=== PATIENT | male | born 1960 | race Caucasian/White ===

== ENCOUNTER → 2019-03-17 08:06 | Outpatient (CLI) | payer OTHER, SELFPAY ==
[2019-03-17 08:43] LABS: Add Manual Diff / Slide Review NO; Basophils Absolute Auto 0 /uL (0-100); Basophils Percent Auto 0.7 % (0-2); Eosinophils Absolute Auto 100 /uL (0-450); Eosinophils Percent Auto 2.5 % (2-4); Hematocrit 41.6 % (41-53); Hemoglobin 14.5 g/dL (13.5-17.5); Lymphocytes Absolute Auto 1300 /uL (1100-4500); Lymphocytes Percent Auto 42.7 % (25-40); Mean Corpuscular HGB Conc 34.7 % (30-36); Mean Corpuscular Hemoglobin 32.9 PG (26-34); Mean Corpuscular Volume 94.7 fL (80-100); Monocytes Absolute Auto 400 /uL (0-900); Monocytes Percent Auto 11.7 % (3-14); Neutrophils Absolute Auto 1300 /uL (1500-7000); Neutrophils Percent Auto 42.4 % (50-75); Platelet Count 134 X10^3/uL (150-400); Red Cell Distribution Width 12.8 % (11.6-14.8); White Blood Cell Count 3.1 X10^3/uL (4.5-11.0)
[2019-03-17 09:13] LABS: Alanine Aminotransferase 23 IU/L (21-72); Albumin 4.2 g/dL (3.5-5.0); Albumin Globulin Ratio 1.4 (1.0-2.8); Alkaline Phosphatase 58 U/L (38-126); Aspartate Aminotransferase 38 IU/L (17-59); BUN Creatinine Ratio 16.7 (6-22); Blood Urea Nitrogen 15 mg/dL (9-20); Calcium 8.9 mg/dL (8.4-10.2); Carbon Dioxide 30 mmol/L (22-32); Chloride 102 mmol/L (98-107); Cholesterol 183 mg/dL (140-199); Estimated Glomerular Filt Rate > 60.0 mL/min (>60); Globulin 2.9 g/dL (1.7-4.1); Glucose 99 mg/dL (70-100); HDL Cholesterol 50 mg/dL (40-60); HEMOLYSIS < 15 (0-50); LDL Cholesterol Calculated 112 mg/dL (<100); Potassium 4.2 mmol/L (3.4-5.1); Sodium 138 mmol/L (137-145); Total Protein 7.1 g/dL (6.3-8.2); Triglycerides 103 mg/dL (35-150)
== END ==
PROVIDERS: PCP Family Medicine; Visit Provider Family Medicine
DX: Z00.00 Encounter for general adult medical examination without abnormal findings (principal); Z13.220 Encounter for screening for lipoid disorders; Z13.6 Encounter for screening for cardiovascular disorders
CPT/HCPCS: 36415; 80053; 80061; 85025

== ENCOUNTER → 2019-06-18 15:40 | Outpatient (CLI) | payer OTHER, SELFPAY ==
[2019-06-21 15:45] LABS: Fecal Immunochemical Test NOT DETECTED (NOT DETECTED)
== END ==
PROVIDERS: PCP Family Medicine; Visit Provider Family Medicine
DX: Z12.11 Encounter for screening for malignant neoplasm of colon (principal)
CPT/HCPCS: 82274

== ENCOUNTER 2019-10-09 09:24 | Inpatient (IN) | payer OTHER, SELFPAY ==
[2019-10-09] VITALS (8 sets, daily range): BP systolic 120–136; BP diastolic 72–84; PULSE 52–67; RESP 12–18; TEMP 36.8–37.1; O2SAT 94–99; BMI 23.1
--- NOTE | 2019-10-09 09:37 | ED_ITS ---
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 this morning. Started with left-sided ?water fall like? hemianopia severe headache behind his right eye tingling into his left hand and along the lateral aspect of the left leg. A sense of feeling slightly orthostatic when he stands up(he notes that this does sometime happen as he has been known to have low blood pressure). A sense that there is more clumsiness in the left hand and perhaps a little more weakness/unsteadiness related to the left leg but he describes symptoms as quite mild. No facial complaints or symptoms. He has had an occasional episode of what he assumed was ocular migraine in the past, not associated with significant headache. He does not carry an official diagnosis of migraine and has not been troubled by chronic recurrent headaches over the course of his life. Related Data Home Medications Medication Instructions Recorded Confirmed No Known Home Medications 03/22/19 Allergies Allergy/AdvReac Type Severity Reaction Status Date / Time No Known Drug Allergies Allergy Unverified 03/22/19 14:52 Review of Systems Review of Systems Narrative: Denies ? fever ? cough ? cold ? chills ? chest pain ? dyspnea ? orthopnea ? wheezing ? abdominal pain ? change to bowel or bladder habits ? nausea vomiting ? skin changes ? rashes Patient History Medical History (Updated 10/09/19 @ 13:03 by Tereza Copeland MD) Actinic keratoses (Chronic 1999) Anxiety (Chronic 1998) Chicken pox (Resolved) Fractures (Resolved 2006) Herpes (Chronic) PTSD (post-traumatic stress disorder) (Chronic 2011) Shingles (Resolved ~1973) Tinnitus (Chronic) Surgical History (Updated 05/18/18 @ 08:42 by Bharati Austin) Anesthesia (Resolved) History of amputation of extremity (Resolved 11/29/85) History of biopsy (Resolved 08/2014) History of open reduction and internal fixation (ORIF) procedure (Resolved 07/14/07) Family History (Updated 03/22/19 @ 15:23 by Teresita Tam DO) Father Heart disease Hypertension High cholesterol Mitral valve disease Aortic valve disease Carotid artery disease Dementia Smoker Mother Age: 82 Hypertension High cholesterol Daily consumption of alcohol Adopted Grandfather No problems noted. Grandmother No problems noted. Sister No problems noted. Family/Other No problems noted. Social History Smoking Status: Never smoker Exam Narrative Exam Narrative: General: Healthy appearing, in no acute distress. Able to give a complete and coherent history. Well-nourished well-developed HEENT: Moist mucous membranes, normal sclera with reactive pupils, Neck: No JVD, supple Respiratory: Lungs are clear to auscultation, no wheezing no rales no rhonchi. Full and symmetrical air movement Cardiac: Regular rate and rhythm no murmurs no bruits Abdomen: Soft nontender good bowel tones, no flank pain Skin: Warm and dry, no rashes Neurologic: Fluent speech, describes a ?water fall flowing effect? in his left visual field (both eyes), no facial asymmetry tongue does not deviate 1 extruded, notes some tingling sensation in his left hand but no obvious deficit similar findings left leg. NIH stroke score of 1 Extremities: No trauma, well perfused Psych: Cooperative, appropriate insight and affect Initial Vital Signs Initial Vital Signs: Vital Signs Temperature 98.3 F 10/09/19 09:24 Pulse Rate 67 10/09/19 09:24 Respiratory Rate 16 10/09/19 09:24 Blood Pressure 129/84 10/09/19 09:24 Pulse Oximetry 99 10/09/19 09:24 Course Orders Ordered: ED Orders 10/09/19 09:[address] angio head and neck Stat EKG-12 Lead Stat 10/09/19 09:45 Basic Metabolic Panel Stat Complete Blood Count AUTO DIFF Stat Partial Thromboplastin Time Stat Prothrombin Time INR Stat 10/09/19 10:33 MR stroke Stat 10/09/19 12:53 EC echo doppler complete Stat Sodium Chloride (Normal Saline 0.9%) 1,000 mls @ 150 mls/hr IV CONT SITA Last Admin: 10/09/19 10:00 Dose: 150 mls/hr Documented by: VEENA Discontinued Medications Ketorolac Tromethamine (Toradol) 15 mg IV NOW ONE Stop: 10/09/19 10:35 Last Admin: 10/09/19 10:53 Dose: 15 mg Documented by: VEENA Vital Signs Vital signs: Vital Signs - 8 hr 10/09/19 09:24 04/11/20 11:45 10/09/19 12:30 Temperature 98.3 F Pulse Rate 67 57 L 55 L Respiratory Rate 16 12 Blood Pressure 129/84 Blood Pressure [Left Arm] 120/73 123/72 Pulse Oximetry 99 98 99 Medical Decision Making Medical Records Medical records reviewed: Yes I reviewed the patient's medical records. Lab Data Lab results reviewed: Yes I reviewed the patient's lab results. Result diagrams: 10/09/19 09:45 10/09/19 09:45 Labs: Lab Results 10/09/19 10/09/19 10/09/19 Range/Units 09:45 09:45 09:45 WBC 4.2 L (4.5-11.0) X10^3/uL RBC 4.48 L (4.5-5.9) X10^6/uL Hgb 14.5 (13.5-17.5) g/dL Hct 42.9 (41-53) % MCV 95.8 (80-100) fL MCH 32.4 (26-34) PG MCHC 33.8 (30-36) % RDW 12.9 (11.6-14.8) % Plt Count 136 L (150-400) X10^3/uL Neut % (Auto) 38.0 L (50-75) % Lymph % (Auto) 49.0 H (25-40) % [place] % (Auto) 11.2 (3-14) % Eos % (Auto) 1.2 L (2-4) % Baso % (Auto) 0.6 (0-2) % Neut # (Auto) 1600 (1644-5987) /uL Lymph # (Auto) 2100 (5213-4156) /uL [place] # (Auto) 500 (0-900) /uL Eos # (Auto) 0 (0-450) /uL Baso # (Auto) 0 (0-100) /uL PT 11.5 (10.1-12.7) SECONDS INR 1.0 (0.9-1.3) APTT 27 (26.4-36.2) SECONDS Sodium 140 (137-145) mmol/L Potassium 4.1 (3.4-5.1) mmol/L Chloride 104 (98-107) mmol/L Carbon Dioxide 28 (22-32) mmol/L BUN 20 (9-20) mg/dL Creatinine 0.86 (0.66-1.25) mg/dL Estimated GFR > 60.0 (>60) mL/min BUN/Creatinine Ratio 23.3 H (6-22) Glucose 95 (70-100) mg/dL Calcium 9.1 (8.4-10.2) mg/dL Urine Dip Bedside Urine Glucose Negative Bedside Urine Bilirubin - Negative Bedside Urine Ketone - Negative Urine Specific [place] 1.010 Bedside Urine Occult Blood - Negative Bedside Urine pH 7.5 Bedside Urine Protein - Negative Bedside Urine Urobilinogen - Negative Bedside Urine Nitrite - Negative Bedside Urine Leukocytes - Negative Esterase Point of care testing: Urine Dip Bedside Urine Glucose Negative Bedside Urine Bilirubin - Negative Bedside Urine Ketone - Negative Urine Specific [place] 1.010 Bedside Urine Occult Blood - Negative Bedside Urine pH 7.5 Bedside Urine Protein - Negative Bedside Urine Urobilinogen - Negative Bedside Urine Nitrite - Negative Bedside Urine Leukocytes - Negative Esterase Imaging Data CTA head/neck: Radiologist's Impression: IMPRESSION: 1. No acute intracranial abnormalities. 2. No high-grade stenosis or occlusion in anterior circulations. 3. No high-grade stenosis or occlusion in posterior circulations. 4. No high-grade stenosis or occlusion in cervical carotid arteries bilaterally. 5. No high-grade stenosis or occlusion in cervical vertebral arteries bilaterally. 6. Bilateral maxillary sinus mucus retention cysts. Any quantitative measurements of stenosis were performed using NASCET criteria. Dictated by: Kristy Robles M.D. on 10/09/2019 at 10:23 CT scan - head: Radiologist's Impression: IMPRESSION: Negative for hemorrhage. Note: Case discussed by telephone with Dr. Tereza Copeland at 9:14 AM [place] time on September. This study fulfills neurological imaging criteria for inclusion or exclusion of acute stroke therapies based on available published neurological imaging guidelines. Dictated by: Ricardo Weber M.D. on 10/09/2019 at 9:12 Brain MRI: Radiologist's Impression: Brain: Abnormal diffusion weighted signal can be seen involving the right occipital lobe, extending down into the medial right temporal lobe and within the right cerebellum, with associated abnormal associated dark signal seen on the ADC maps. No intracranial bleeds or mass effects. Zhang-white matter interface is normal. Brainstem appears normal. Normal intravascular flow voids are present. No abnormal intracranial enhancement. IMPRESSION: BRAIN MRI: Areas of acute infarction can be seen involving the right occipital lobe (extending down into the medial right temporal lobe) and the right cerebellum. BRAIN MR ANGIOGRAM: No significant intracranial arterial abnormality is seen. NECK MR ANGIOGRAM: Within the arteries of the neck, no hemodynamically sign ificant stenosis can be seen. Dictated by: Ricardo Weber M.D. on 10/09/2019 at 10:55 ECG Data Attestation: I personally reviewed and interpreted this ECG as follows: Interpretation: Sinus rhythm at a rate of 61 Normal axis normal intervals No acute ischemic changes MDM Narrative Medical decision making narrative: 59-year-old otherwise exceptionally healthy gentleman presents with acute onset of visual field deficit and headache in the right eye. He is also having sensation abnormalities left upper and lower ex tremities. Code stroke is called and given his excellent health he actually could be having a large vessel occlusion with minimal symptoms. More likely diagnosis is complex migraine however without a prior history of migraines this would be somewhat unusual at the age of 59. Will proceed with brain CT and CTA and re-evaluate symptoms 10:14: radiology call back - no hemorrhage on CT 11:[address] findings. Symptoms on the left side of his body have almost entirely resolved. His headache is down to a 4/10 behind his right eye. The cascade eating water fall pineda anopsia description is down to just a small bit of vision loss in the upper left visual bosch. MRI of the brain is ordered 1229 MR returns and shows an acute area of infarct involving the right occipital lobe and the right cerebellum. With symptoms almost entirely resolved at this point and NIH stroke scale of less than 1, tPA does not seem warranted. Will review care and findings with [facility] and see if they have further recommendations. 1236 Dr Salomon, [facility]. Reviewing case and images. Agrees with conclusion of acute CVA. NO TPA given/recommended due to almost complete resolution of symptoms. No vessel lesions or clots are seen. Recommends full-d ose aspirin, 10 mg of Lipitor, admit for telemetry and echocardiogram looking for structural heart deficits specifically patent foramen ovale. Did offer to follow-up at the [facility] should that be appropriate or required at [phone] patient is informed of findings plan and recommendations. Questions are answered. Care has been reviewed with Dr. Givens, admitting hospitalist. He agrees with admission and we will contact echocardiography to see if we can facilitate an echocardiogram today at some point Discharge Plan Departure Patient Disposition: Admitted As Inpatient Clinical Impression: Stroke Qualifiers: CVA mechanism: other Qualified Code(s): I63.89 - Other cerebral infarction Admit Date/Time: 10/09/19 13:00 Admit Provider: Jace Givens
--- NOTE | 2019-10-09 09:38 | DI.CT.S_ITS ---
PROCEDURE: CT ANGIO HEAD AND NECK INDICATIONS: left side weaknes, tingling, time 8:50 TECHNIQUE: Pre-contrast 4.5 mm thick sections acquired from the foramen magnum to the vertex. After the administration of intravenous contrast, 1 mm thick sections acquired from the aortic arch through the [place] of [place]. Post-contrast 4.5 mm thick sections then re-acquired from the foramen magnum to the vertex. 3-dimensional ohacgpi-flydvatyy-tehkyhbxoi (MIP) and/or volume rendering reformats were acquired of the central intracranial vasculature and neck separately. COMPARISON: [facility], CT, CT STROKE, 10/09/2019, 9:40. FINDINGS: Image quality: Excellent. BRAIN: CSF spaces: Ventricles are normal in size and shape. Basal cisterns are patent. No extra-axial fluid collections. Brain: No midline shift. No intracranial bleeds or masses. Zhang-white matter interface appears intact. Skull and face: Calvarium and facial bones appear intact, without suspicious lesions. Orbits appear normal. Sinuses: Bilateral maxillary sinus mucus retention cyst. The mastoids are clear. HEAD CT ANGIOGRAPHY: Anterior circulation: Intracranial internal carotid arteries are normal in size and flow. The flow within the paired anterior cerebral arteries is normal and symmetric. The flow within the middle cerebral arteries is normal and symmetric. The anterior communicating artery is seen. No aneurysms are seen. Posterior circulation: Visualized portions of the vertebral arteries demonstrate normal caliber, and join to form a normal appearing basilar artery. Flow within the posterior cerebral arteries is normal and symmetric. No aneurysms are seen. NECK CT ANGIOGRAPHY: Carotid system: The great vessels demonstrate a conventional anatomy as they arise from the aortic arch. The origins of the common carotid arteries appear patent. The common carotid arteries demonstrate normal caliber and courses. The bifurcation regions are both widely patent. The internal carotid arteries demonstrate normal calibers and courses. Posterior circulation: The origins of the vertebral arteries both appear widely patent. The more superior extracranial portions of both vertebral arteries also demonstrate normal courses and calibers. They join to form a normal appearing basilar artery. Soft tissues: Visualized neck soft tissues demonstrate no suspicious abnormalities. Bones: No suspicious bony lesions. Visualized cervical spine appears normally aligned. Moderate degenerative disc disease in cervical spine. IMPRESSION: 1. No acute intracranial abnormalities. 2. No high-grade stenosis or occlusion in anterior circulations. 3. No high-grade stenosis or occlusion in posterior circulations. 4. No high-grade stenosis or occlusion in cervical carotid arteries bilaterally. 5. No high-grade stenosis or occlusion in cervical vertebral arteries bilaterally. 6. Bilateral maxillary sinus mucus retention cysts. Any quantitative measurements of stenosis were performed using NASCET criteria. Dictated by: Kristy Robles M.D. on 10/09/2019 at 10:23 Approved by: Kristy Robles M.D. on 10/09/2019 at 10:28
--- NOTE | 2019-10-09 09:38 | DI.CT.S_ITS ---
PROCEDURE: CT STROKE INDICATIONS: left side weaknes, tingling, time 8:50 TECHNIQUE: Noncontrast 4.5 mm thick angled axial sections acquired from the foramen magnum to the vertex, with coronal reformats. For radiation dose reduction, the following was used: automated exposure control, adjustment of mA and/or kV according to patient size. COMPARISON: [facility], CT, CT ANGIO HEAD AND NECK, 10/09/2019, 9:46. FINDINGS: Image quality: Excellent. CSF spaces: Basal cisterns are patent. No extra-axial fluid collections. Ventricles are normal in size and shape. Brain: No midline shift. No intracranial masses or hemorrhage. Zhang-white matter interface is normal. Skull and face: Calvarium and visualized facial bones are intact, without suspicious lesions. Sinuses: Visualized sinuses and mastoids are clear. IMPRESSION: Negative for hemorrhage. Note: Case discussed by telephone with Dr. Tereza Copeland at 9:14 AM [place] time on September. This study fulfills neurological imaging criteria for inclusion or exclusion of acute stroke therapies based on available published neurological imaging guidelines. Dictated by: Ricardo Weber M.D. on 10/09/2019 at 9:12 Approved by: Ricardo Weber M.D. on 10/09/2019 at 9:15
[2019-10-09 09:51] LABS: Add Manual Diff / Slide Review NO; Basophils Absolute Auto 0 /uL (0-100); Basophils Percent Auto 0.6 % (0-2); Eosinophils Absolute Auto 0 /uL (0-450); Eosinophils Percent Auto 1.2 % (2-4); Hematocrit 42.9 % (41-53); Hemoglobin 14.5 g/dL (13.5-17.5); Lymphocytes Absolute Auto 2100 /uL (1100-4500); Mean Corpuscular HGB Conc 33.8 % (30-36); Mean Corpuscular Hemoglobin 32.4 PG (26-34); Mean Corpuscular Volume 95.8 fL (80-100); Monocytes Absolute Auto 500 /uL (0-900); Monocytes Percent Auto 11.2 % (3-14); Neutrophils Absolute Auto 1600 /uL (1500-7000); Platelet Count 136 X10^3/uL (150-400); Red Blood Cell Count 4.48 X10^6/uL (4.5-5.9); Red Cell Distribution Width 12.9 % (11.6-14.8); White Blood Cell Count 4.2 X10^3/uL (4.5-11.0)
[2019-10-09 09:57] LABS: Prothrombin Time 11.5 SECONDS (10.1-12.7)
[2019-10-09 10:00] LABS: PTT Partial Thromboplastin Tim 27 SECONDS (26.4-36.2)
[2019-10-09] MEDS: SODIUM CHLORIDE 0.9% 1,000 ML 150 ML IV (10:00)
[2019-10-09 10:01] LABS: BUN Creatinine Ratio 23.3 (6-22); Blood Urea Nitrogen 20 mg/dL (9-20); Calcium 9.1 mg/dL (8.4-10.2); Carbon Dioxide 28 mmol/L (22-32); Chloride 104 mmol/L (98-107); Estimated Glomerular Filt Rate > 60.0 mL/min (>60); Glucose 95 mg/dL (70-100); HEMOLYSIS 46 (0-50); Potassium 4.1 mmol/L (3.4-5.1); Sodium 140 mmol/L (137-145)
--- NOTE | 2019-10-09 10:33 | DI.MRI.S_ITS ---
PROCEDURE: MR STROKE Pre- and post-contrast brain MRI, non-contrast brain MR angiogram, pre- and postcontrast neck MR angiogram INDICATIONS: Left numbness and hemianopsia TECHNIQUE: Brain: Noncontrast axial T1 spin echo, axial T2 fast spin echo, sagittal and axial FLAIR, coronal T2 fast spin echo, axial gradient echo, axial diffusion and ADC through the brain. After the administration of contrast, axial 3D VIBE of the cranial vasculature and brain. Brain MRA: Non-contrast 3-D time of flight MR angiogram, with multiple blpaeig-chhfqryzy-juzszclrbw (MIP) reformats performed. Neck MRA: Axial and sagittal TruFISP through the neck. Coronal dynamic MR angiogram during administration of contrast in the arterial and venous phases, with 3-dimenstional mfdgarc-ffgosniut-vijngglzhw (MIP) reformats constructed from subtraction images. COMPARISON: [facility], CT, CT STROKE, 10/09/2019, 9:40. [facility], CT, CT ANGIO HEAD AND NECK, 10/09/2019, 9:46. FINDINGS: Image quality: Susceptibility artifact is seen, from dental hardware. BRAIN: CSF spaces: Ventricles are normal in size and shape. Basal cisterns are patent. No extra-axial fluid collections. Brain: Abnormal diffusion weighted signal can be seen involving the right occipital lobe, extending down into the medial right temporal lobe and within the right cerebellum, with associated abnormal associated dark signal seen on the ADC maps. No intracranial bleeds or mass effects. Zhang-white matter interface is normal. Brainstem appears normal. Normal intravascular flow voids are present. No abnormal intracranial enhancement. Skull and face: Calvarial marrow signal is normal. Orbits appear normal. Sinuses: Mucous retention cysts can be seen within the maxillary sinuses, with mild to moderate mucosal thickening within the right maxillary sinus inferiorly. Minimal mucosal thickening is seen elsewhere within the paranasal sinuses. No abnormal fluid is seen within the mastoid air cells. BRAIN MR ANGIOGRAM: Anterior circulation: Intracranial internal carotid arteries are normal in size and enhancement. The flow within the paired anterior cerebral arteries is normal and symmetric. The flow within the middle cerebral arteries is normal and symmetric. The anterior communicating artery is seen. No stenoses, occlusions, or aneurysms. Posterior circulation: The visualized portions of the vertebral arteries demonstrate normal caliber, and join to form a normal appearing basilar artery. The flow within the posterior cerebral arteries is normal and symmetric. No stenoses, occlusions, or aneurysms. NECK MR ANGIOGRAM: Carotids: Great vessels demonstrate a conventional anatomy as they arise from the aortic arch. The origins of the common carotid arteries appear patent. The calibers and courses of both common carotid arteries are normal. The bifurcation regions appear normal bilaterally. The internal carotid arteries demonstrate normal course and caliber. Posterior circulation: The origins of the vertebral arteries appear patent. More superior portions of both vertebral arteries demonstrate normal course and caliber, and join to form a normal appearing basilar artery. Miscellaneous: Subclavian arteries appear patent. Pre-contrast images through the neck show no soft tissue abnormalities. IMPRESSION: BRAIN MRI: Areas of acute infarction can be seen involving the right occipital lobe (extending down into the medial right temporal lobe) and the right cerebellum. BRAIN MR ANGIOGRAM: No significant intracranial arterial abnormality is seen. NECK MR ANGIOGRAM: Within the arteries of the neck, no hemodynamically significant stenosis can be seen. Dictated by: Ricardo Weber M.D. on 10/09/2019 at 10:55 Approved by: Ricardo Weber M.D. on 10/09/2019 at 11:05
[2019-10-09] MEDS: KETOROLAC 60 MG/2 ML VIAL 15 MG IV (10:53)
--- NOTE | 2019-10-09 14:16 | P.HP_ITS ---
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 He also felt some L arm tingling and L leg tingling. He normally runs 5 times per week and has a lot of energy, but th is morning he felt profoundly fatigued. He did not try anything to make a get better and nothing seemed to make it worse. Just prior to the event he denies palpitations but may have felt slightly flushed / hot. Denies any dizziness, chest pain, shortness of breath, recent fever, chills, abdominal pain, nausea, vomiting, diarrhea, constipation, orthopnea, or lower extremity edema. He thought initially that this was a another ocular migraine, but given the other symptoms this morning decided to call the emergency room. In the emergency room, patient had unremarkable vital signs. Laboratory e valuation shows a mild thrombocytopenia, 136, which is stable from his values than outpatient. There are no other remarkable lab findings. He underwent a CT head and CTA head and neck which were both unremarkable. He had an MRI which showed acute areas of infarction involving the right occipital lobe extending down to the medial right temporal lobe, and the right cerebellum. There were no noted significant intracranial atherosclerotic lesions. Case was discussed with [facility] and did not recommend tPA given almost complete resolution of symptoms. He recommended full-dose aspirin, Lipitor and admission for telemetry an echocardiogram to evaluate for any structural heart defects or PFO. Upon arrival to medicine floor, he has improved symptoms and denies any left arm tingling or weakness. He still has a small visual defect in the left upper field of his left eye, but the spot has been shrinking. Patient History Medical History (Updated 10/09/19 @ 13:03 by Tereza Copeland MD) Actinic keratoses (Chronic 1999) Anxiety (Chronic 1998) Chicken pox (Resolved) Fractures (Resolved 2006) Herpes (Chronic) PTSD (post-traumatic stress disorder) (Chronic 2011) Shingles (Resolved ~1973) Tinnitus (Chronic) Surgical History (Updated 05/18/18 @ 08:42 by Bharati Austin) Anesthesia (Resolved) History of amputation of extremity (Resolved 11/29/85) History of biopsy (Resolved 08/2014) History of open reduction and internal fixation (ORIF) procedure (Resolved ) Family & Social History Family History (Updated 03/22/19 @ 15:23 by Teresita Tam DO) Father Heart disease Hypertension High cholesterol Mitral valve disease Aortic valve disease Carotid artery disease Dementia Smoker Mother Age: 82 Hypertension High cholesterol Daily consumption of alcohol Adopted Grandfather No problems noted. Grandmother No problems noted. Sister No problems noted. Family/Other No problems noted. Safety & Behavioral: Feels Safe in Current Yes Environment Been Physically Hurt or No Threatened By a Person Tobacco & Substance use: Smoking Status Never smoker alcohol intake frequency 3 or more drinks per day Substance Use Type does not use Meds Home Medications and Allergies Home Medications Medication Instructions Recorded Confirmed Type No Known Home Medications 03/22/19 10/09/19 History Allergies Allergy/AdvReac Type Severity Reaction Status Date / Time No Known Drug Allergies Allergy Unverified 03/22/19 14:52 Review of Systems Review of Systems Narrative: GENERAL APPEARANCE: Well developed, well nourished, in no acute distress. SKIN: Inspection of the skin reveals no rashes, ulcerations or petechiae. HEENT: Normocephalic atraumatic, extraocular muscles are intact, oropharynx is clear and mucous membranes are moist, neck is supple without adenopathy NECK: Supple and symmetric. There was no thyroid enlargement, and no tenderness, or masses were felt. CHEST: Normal AP diameter and normal contour without any kyphoscoliosis. LUNGS: Auscultation of the lungs revealed no wheezes, rhonchi, or rales. CARDIOVASCULAR: There was a regular rate and rhythm without any murmurs, gallops, rubs. Peripheral pulses were 2+ and symmetric. ABDOMEN: Soft and nontender with normal bowel sounds. No ascites was noted. MUSCULOSKELETAL: There was no tenderness or effusions noted. Muscle strength and tone were normal. EXTREMITIES: No cyanosis, clubbing or edema. NEUROLOGIC: Alert and oriented x 3. Normal affect. Gait was normal. Strength is +5/5 in the Upper Extremities and Lower Extremities Bilaterally. Sensation to touch was normal. Exam Vital Signs (past 8 hours): - 10/09/19 09:24 10/09/19 11:45 10/09/19 12:30 Temperature 98.3 F Pulse Rate 67 57 L 55 L Respiratory Rate 16 12 Blood Pressure 129/84 Blood Pressure [Left Arm] 120/73 123/72 Pulse Oximetry 99 98 99 Oxygen Delivery Method Room Air Narrative Exam Narrative: GENERAL APPEARANCE: Well developed, well nourished, in no acute distress. SKIN: Inspection of the skin reveals no rashes, ulcerations or petechiae. HEENT: Normocephalic atraumatic, extraocular muscles are intact, oropharynx is clear and mucous membranes are moist, neck is supple without adenopathy NECK: Supple and symmetric. There was no thyroid enlargement, and no tenderness, or masses were felt. CHEST: Normal AP diameter and normal contour without any kyphoscoliosis. LUNGS: Auscultation of the lungs revealed no wheezes, rhonchi, or rales. CARDIOVASCULAR: mildly bradycardic with regular rhythm. Peripheral pulses were 2+ and symmetric. ABDOMEN: Soft and nontender with normal bowel sounds. No ascites was noted. MUSCULOSKELETAL: There was no tenderness or effusions noted. Muscle strength and tone were normal. EXTREMITIES: No cyanosis, clubbing or edema. NEUROLOGIC: Alert and oriented x 3. Normal affect. Gait was normal. Strength is +5/5 in the Upper Extremities and Lower Extremities Bilaterally. Sensation to touch was normal. Heel to carroll unremarkable bilaterally. Cranial nerves 2-12 grossly intact bilaterally. No nystagmus. Objective ECG Impression: Normal sinus rhythm with possible left atrial enlargement. No evidence of active ischemia. Imaging CT scan - head: Radiologist's impression: Negative for hemorrhage. Note: Case discussed by telephone with Dr. Tereza Copeland at 9:14 AM [place] time on September. This study fulfills neurological imaging criteria for inclusion or exclusion of acute stroke therapies based on available published neurological imaging guidelines. CTA head and neck: Radiologist's impression: 1. No acute intracranial abnormalities. 2. No high-grade stenosis or occlusion in anterior circulations. 3. No high-grade stenosis or occlusion in posterior circulations. 4. No high-grade stenosis or occlusion in cervical carotid arteries bilaterally. 5. No high-grade stenosis or occlusion in cervical vertebral arteries bilaterally. 6. Bilateral maxillary sinus mucus retention cysts. Any quantitative measurements of stenosis were performed using NASCET criteria. MRI - head: Radiologist's impression: BRAIN MRI: Areas of acute infarction can be seen involving the right occipital lobe (extending down into the medial right temporal lobe) and the right cerebellum. BRAIN MR ANGIOGRAM: No significant intracranial arterial abnormality is seen. NECK MR ANGIOGRAM: Within the arteries of the neck, no hemodynamically significant stenosis can be seen. Labs Result Diagrams: 10/09/19 09:45 10/09/19 09:45 Labs: Laboratory Results - last 24 hr 10/09/19 10/09/19 10/09/19 09:45 09:45 09:45 WBC 4.2 L RBC 4.48 L Hgb 14.5 Hct 42.9 MCV 95.8 MCH 32.4 MCHC 33.8 RDW 12.9 Plt Count 136 L Neut % (Auto) 38.0 L Lymph % (Auto) 49.0 H [place] % (Auto) 11.2 Eos % (Auto) 1.2 L Baso % (Auto) 0.6 Neut # (Auto) 1600 Lymph # (Auto) 2100 [place] # (Auto) 500 Eos # (Auto) 0 Baso # (Auto) 0 PT 11.5 INR 1.0 APTT 27 Sodium 140 Potassium 4.1 Chloride 104 Carbon Dioxide 28 BUN 20 Creatinine 0.86 Estimated GFR > 60.0 BUN/Creatinine Ratio 23.3 H Glucose 95 Calcium 9.1 Assessment & Plan Assessment & Plan narrative: Jared Coates is a 59 year old male, 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 He is admitted for further monitoring and risk stratification. 1. Acute CVA, present on admission, right occipital lobe to R cerebellum. -CT head and CTA head and neck were unremarkable. -MRI stroke showed acute areas of infarction involving the right occipital lobe extending down to the medial right temporal lobe, and the right cerebellum. -have ordered echocardiogram -PT/OT/speech eval -Give full dose ASA -start lipitor 40 mg nightly -continue aspirin 81 mg daily -continue telemetry. -tylenol for pain control -NIH stroke scale q shift, current NIHSS 1 for partial hemianopia. -A1c, TSH, AM lipid panel 2. thrombocytopenia, chronic, stable - continue to follow, consistent with baseline thrombocytopenia noted on outpatient labs, no further inpatient evaluation required. Code: Full, elects as surrogate decision maker and has health care directive at home. DVT: Lovenox daily Dispo: Admitted as inpatient for acute CVA. Scores NIHSS Level of Conciousness: Alert, keenly responsive Ask month/age: Answers both questions correctly. Open/close eyes, close hand: Performs both tasks correctly Best gaze horizontal: Normal Visual bosch: Partial hemianopia Facial palsy: Normal symetrical movement Left arm drift: No drift for full 10 sec Right arm drift: No drift for full 10 sec Left leg drift: No drift for full 5 sec Right leg drift: No drift for full 5 sec Limb ataxia: Absent Sensory on face/arms/legs: Normal, no sensory loss Best language: No aphasia, normal Dysarthria: Normal Extinction or inattention: No abnormality Total NIH Stroke scale score: 1
[2019-10-09] MEDS: ASPIRIN 81 MG CHEW TAB 324 MG PO (15:47)
[2019-10-09] MEDS: ATORVASTATIN 20 MG TABLET 40 MG PO (20:55)
[2019-10-10 01:06] VITALS: O2SAT 99
[2019-10-10 04:45] VITALS: BP 102/68; PULSE 50; RESP 18; TEMP 37.1; O2SAT 100
[2019-10-10 05:01] LABS: Add Manual Diff / Slide Review NO; Basophils Absolute Auto 0 /uL (0-100); Basophils Percent Auto 0.6 % (0-2); Eosinophils Absolute Auto 100 /uL (0-450); Eosinophils Percent Auto 1.8 % (2-4); Hematocrit 42.8 % (41-53); Hemoglobin 14.4 g/dL (13.5-17.5); Lymphocytes Absolute Auto 1700 /uL (1100-4500); Lymphocytes Percent Auto 35.9 % (25-40); Mean Corpuscular HGB Conc 33.6 % (30-36); Mean Corpuscular Hemoglobin 32.3 PG (26-34); Mean Corpuscular Volume 96.2 fL (80-100); Monocytes Absolute Auto 500 /uL (0-900); Monocytes Percent Auto 9.9 % (3-14); Neutrophils Absolute Auto 2500 /uL (1500-7000); Neutrophils Percent Auto 51.8 % (50-75); Platelet Count 126 X10^3/uL (150-400); Red Blood Cell Count 4.45 X10^6/uL (4.5-5.9); Red Cell Distribution Width 12.9 % (11.6-14.8); White Blood Cell Count 4.8 X10^3/uL (4.5-11.0)
[2019-10-10 05:04] LABS: BUN Creatinine Ratio 15.5 (6-22); Blood Urea Nitrogen 13 mg/dL (9-20); Carbon Dioxide 29 mmol/L (22-32); Chloride 106 mmol/L (98-107); Cholesterol 186 mg/dL (140-199); Estimated Glomerular Filt Rate > 60.0 mL/min (>60); Glucose 103 mg/dL (70-100); HDL Cholesterol 43 mg/dL (40-60); HEMOLYSIS < 15 (0-50); LDL Cholesterol Calculated 117 mg/dL (<100); Magnesium 2.2 mg/dL (1.6-2.3); Potassium 4.1 mmol/L (3.4-5.1); Sodium 139 mmol/L (137-145); Triglycerides 131 mg/dL (35-150)
[2019-10-10 05:07] LABS: Hemoglobin A1C% w Est Avg Glu 5.7 % (4.0-6.0)
[2019-10-10 05:41] LABS: TSH w/ Reflex to FT4 2.97 uIU/mL (0.47-4.68)
[2019-10-10 08:00] VITALS: BP 123/81; PULSE 58; RESP 18; TEMP 36.9; O2SAT 100
[2019-10-10] MEDS: ENOXAPARIN 40 MG/0.4 ML SYRINGE SUBCUT (08:45)
[2019-10-10] MEDS: CLOPIDOGREL 75 MG TABLET 300 MG PO (08:46)
--- NOTE | 2019-10-10 08:52 | CM.DANOTE ---
DCP: Case received, EMR reviewed and met with patient. Introduced self and role. Was able to converse with patient and obtain information regarding his baseline activity level at home. DCP assessment completed with information currently available. Patient is a 59 year old male who admitted yesterday afternoon to the care of the hospitalist team. PCP: Dr. Tam. Payer: confirmed: Replaced by [facility]. Patient came to the hospital via family vehicle secondary to him having occular migraines. Patient stated, he has a history of these type of migraines, but this time, the symptoms were different> Patient diagnosed with acute CVA, affecting right occipital lobe and cerebellum. Met with patient in his room. Pleasant, alert and oriented. He mentioned that he has already been up to the bathroom on his own, and is feeling better. 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 He resides in [place] with his , Colette, and his 10 year old daughter. He stated that he is active, and spends time hiking, and runs as well. He also very appreciative of the care that he is getting here. P: DCP to continue to follow. He has not yet worked with P.T. He should be able to go home when he is stable and will look at P.T. notes as well. Vanessa Wright RN/Collar Separator
--- NOTE | 2019-10-10 10:09 | PM.DS.1 ---
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 He also felt some L arm tingling and L leg tingling. He normally runs 5 times per week and has a lot of energy, but this morning he felt profoundly fatigued. He did not try anything to make a get better and nothing seemed to make it worse. Just prior to the event he denies palpitations but may have felt slightly flushed / hot. Denies any dizziness, chest pain, shortness of breath, recent fever, chills, abdominal pain, nausea, vomiting, diarrhea, constipation, orthopnea, or lower extremity edema. He thought initially that this was a another ocular migraine, but given the other symptoms this morning decided to call the emergency room. In the emergency room, patient had unremarkable vital signs. Laboratory evaluation shows a mild thrombocytopenia, 136, which is stable from his values than outpatient. There are no other remarkable lab findings. He underwent a CT head and CTA head and neck which were both unremarkable. He had an MRI which showed acute areas of infarction involving the right occipital lobe extending down to the medial right temporal lobe, and the right cerebellum. There were no noted significant intracranial atherosclerotic lesions. Case was discussed with [facility] and did not recommend tPA given almost complete resolution of symptoms. He recommended full-dose aspirin, Lipitor and admission for telemetry an echocardiogram to evaluate for any structural heart defects or PFO. Upon arrival to medicine floor, he has improved symptoms and denies any left arm tingling or weakness. He still has a small visual defect in the left upper field of his left eye, but the spot has been shrinking. Discharge Providers Provider Date of admission: 10/09/19 13:00 Discharge Date: 10/10/19 Primary care physician: Teresita Tam DO Consults: 10/09/19 14:19 Consult to Occupational Therapy Evaluate & Treat Comment: Physician Instructions: Evaluate and treat Consult to Physical Therapy Evaluate & Treat Comment: Physician Instructions: Evaluate and Treat 10/09/19 14:38 Consult to Speech Therapy Evaluate & Treat Comment: CVA Physician Instructions: Evaluate and treat Discharge provider: Jace Givens DO Summary Hospital Course Discharge Diagnosis: Please see hospital course by problem list noted below. 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 He was admitted for further monitoring and risk stratification. He showed no evidence of atrial fibrillation on telemetry, and his echocardiogram was unremarkable. He was started on antiplatelet therapy as well as statin therapy and will follow-up with his primary care provider. 1. Acute CVA, present on admission, right occipital lobe to R cerebellum. -CT head and CTA head and neck were unremarkable. -MRI stroke showed acute areas of infarction involving the right occipital lobe extending down to the medial right temporal lobe, and the right cerebellum. -echocardiogram did show an intra-atrial shunt with valsalva maneuver consistent with PFO. DVT study was negative for thrombosis. Patient should be referred given his age for evaluation for possible closure for secondary prevention of stroke. -patient tolerated diet, no need for speech eval as no evidence of aspiration during his hospital stay. Patient was seen by physical therapy and did show a mild ataxia, but there was no need for occupational therapy per speech physical therapy evaluation. He was cleared for discharge home. -patient was given loading dose of aspirin and Plavix. He will continue on aspirin 81 mg for life and 75 mg of Plavix daily for 3 weeks. -patient was started on Lipitor 40 mg nightly for high intensity statin. -will likely need outpatient evaluation with holter monitor for evaluation of possible afib given possible PFO closure as noted above. -NIH stroke scale remained 1 throughout his hospital course. His hemianopia began to slowly improve, however there is still a partial deficit. He will likely need to follow-up with an associate professor of forestry or neuro associate professor of forestry if possible as an outpatient. -A1c 5.7%, TSH unremarkable at 2.97, AM lipid panel showing an LDL of 117, total cholesterol 186, and HDL of 43. Triglyceride level unremarkable at 131. 2. thrombocytopenia, chronic, stable - continue to follow, consistent with baseline thrombocytopenia noted on outpatient labs, no further inpatient evaluation required. 3. Prediabetes, new diagnosis a1c minimal elevation at 5.7% - counseled on dietary modifications and patient vigorously exercises. Exam Vital Signs (past 8 hours): - 10/10/19 04:45 10/10/19 08:00 Temperature 98.8 F 98.5 F Pulse Rate 50 L 58 L Respiratory Rate 18 18 Blood Pressure 102/68 123/81 Pulse Oximetry 100 100 Oxygen Delivery Method Room Air Oxygen Flow Rate 0 Narrative Exam Narrative: GENERAL APPEARANCE: Well developed, well nourished, in no acute distress. SKIN: Inspection of the skin reveals no rashes, ulcerations or petechiae. HEENT: Normocephalic atraumatic, extraocular muscles are intact, oropharynx is clear and mucous membranes are moist, neck is supple without adenopathy NECK: Supple and symmetric. There was no thyroid enlargement, and no tenderness, or masses were felt. CHEST: Normal AP diameter and normal contour without any kyphoscoliosis. LUNGS: Auscultation of the lungs revealed no wheezes, rhonchi, or rales. CARDIOVASCULAR: There was a regular rate and rhythm without any murmurs, gallops, rubs. Peripheral pulses were 2+ and symmetric. ABDOMEN: Soft and nontender with normal bowel sounds. No ascites was noted. MUSCULOSKELETAL: There was no tenderness or effusions noted. Muscle strength and tone were normal. EXTREMITIES: No cyanosis, clubbing or edema. NEUROLOGIC: Alert and oriented x 3. Normal affect. Gait was normal. Strength is +5/5 in the Upper Extremities and Lower Extremities Bilaterally. Sensation to touch was normal. Objective Labs Result Diagrams: 10/10/19 04:45 10/10/19 04:45 Labs: Laboratory Results - last 24 hr 10/09/19 10/10/19 10/10/19 09:45 04:45 04:45 WBC 4.8 RBC 4.45 L Hgb 14.4 Hct 42.8 MCV 96.2 MCH 32.3 MCHC 33.6 RDW 12.9 Plt Count 126 L Neut % (Auto) 51.8 Lymph % (Auto) 35.9 [place] % (Auto) 9.9 Eos % (Auto) 1.8 L Baso % (Auto) 0.6 Neut # (Auto) 2500 Lymph # (Auto) 1700 [place] # (Auto) 500 Eos # (Auto) 100 Baso # (Auto) 0 PT 11.5 INR 1.0 APTT 27 Sodium 139 Potassium 4.1 Chloride 106 Carbon Dioxide 29 BUN 13 Creatinine 0.84 Estimated GFR > 60.0 BUN/Creatinine Ratio 15.5 Glucose 103 H Hemoglobin A1c Calcium 9.0 Magnesium 2.2 Triglycerides 131 Cholesterol 186 LDL Cholesterol, Calc 117 H HDL Cholesterol 43 TSH 10/10/19 10/10/19 04:45 04:45 WBC RBC Hgb Hct MCV MCH MCHC RDW Plt Count Neut % (Auto) Lymph % (Auto) [place] % (Auto) Eos % (Auto) Baso % (Auto) Neut # (Auto) Lymph # (Auto) [place] # (Auto) Eos # (Auto) Baso # (Auto) PT INR APTT Sodium Potassium Chloride Carbon Dioxide BUN Creatinine Estimated GFR BUN/Creatinine Ratio Glucose Hemoglobin A1c 5.7 Calcium Magnesium Triglycerides Cholesterol LDL Cholesterol, Calc HDL Cholesterol TSH 2.97 Discharge Plan Discharge Plan Patient Disposition: Home Discharge comment: You were admitted to the hospital with a stroke. You were started on three new medications. Two of them stop platelets from sticking to each other and the other is a cholesterol medication. These medications are designed to reduce your risk of having another stroke. You should take aspirin and lipitor for the rest of your life, however plavix you will only need to take for 3 weeks. Please follow up with your primary care provider in the next 2-4 weeks. You may need to obtain a holter monitor from your PCP to evaluate for possible atrial fibrillation given your stroke as no evidence was found here. Discharge orders & Medications Prescriptions: New clopidogrel 75 mg Tablet 75 mg PO DAILY 21 Days Qty: 21 RF: 0 aspirin 81 mg tablet,delayed release (DR/EC) 81 mg PO DAILY Qty: 30 RF: 0 atorvastatin 40 mg tablet 40 mg PO BEDTIME 30 Days Qty: 30 RF: 0 No Action No Known Home Medications RF: 0 Follow up/Referrals: Teresita Tam DO [Primary Care Provider] - Discharge Health Status Health Concerns: Acute CVA Diet/Activity/Treatments Diet: Diet as Tolerated and Low-sodium Activity: As tolerated Visit Report/Discharge Packet Instructions: DI for Stroke-Ischemic, Atorvastatin, Clopidogrel Visit Report Forms: Patient Portal/API, Stroke Signs & Symptoms Discharge Data Primary Care Provider: Teresita Tam Quality VTE Deep Vein Thrombosis/Pulmonary Embolism Present on Admission: No
[2019-10-10 11:00] VITALS: BP 131/70; PULSE 66; RESP 18; TEMP 37.5; O2SAT 100
--- NOTE | 2019-10-10 11:21 | PT.IIE ---
Surgical History (Last Updated 05/18/18 @ 08:42 by Bharati Austin) Anesthesia (Resolved) History of amputation of extremity (Resolved 11/29/85) History of biopsy (Resolved 08/2014) History of open reduction and internal fixation (ORIF) procedure (Resolved 07/14/07) Medical History (Last Updated 05/18/18 @ 08:42 by hBarati Austin) Actinic keratoses (Chronic 1999) Anxiety (Chronic 1998) Chicken pox (Resolved) Fractures (Resolved 2006) Herpes (Chronic) PTSD (post-traumatic stress disorder) (Chronic 2011) Shingles (Resolved ~1973) Tinnitus (Chronic) Physical Therapy Inpatient Evaluation/Re-Eval M1 PT/OT-IP Prior Functional Status Start: 10/10/19 09:10 Freq: Status: Active Protocol: Document 10/10/19 09:50 MB (Rec: 10/10/19 11:21 MB [id number]) Medical Review Prior Functional Status Medical History Reviewed Yes Diet/Fluid Consistency Regular Communication A&O x4 Mobility and Gait I Activities of Daily Living and IADL's I, worked, very active hiking, running Social History Household Members spouse,children Living Arrangements House Number of Stairs To Enter/Railing? 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 PT-IP Current Condition Start: 10/10/19 09:10 Freq: Status: Active Protocol: Document 10/10/19 09:50 MB (Rec: 10/10/19 11:21 MB [id number]) Physical Therapy Current Condition Current Condition Evaluation Date 10/10/19 Treatment Diagnosis R cerebellar and occipital lobe stroke M3 PT-IP Subjective Start: 10/10/19 09:10 Freq: Status: Active Protocol: Document 10/10/19 09:50 MB (Rec: 10/10/19 11:21 MB [id number]) Subjective Physical Therapy Visit Type Type Initial Evaluation Visit Start Time 09:50 Visit Stop Time 11:00 Total Visit Minutes 70 Notes Eval, treat, post-d/c HEP and recommendations and education given to pt 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 0 Physical Therapy Visit Comments Patient Goals To go home Therapy Pain Assessment Pain When Pain Assessed Rest/mobil Pain Present Pain Present Denied Pain M4 PT-IP Mobility and Gait Start: 10/10/19 09:10 Freq: Status: Active Protocol: Document 10/10/19 09:50 MB (Rec: 10/10/19 11:21 MB [id number]) PT-Bed Mobility Assessment Rolling Type of Rolling Roll to Right Level of Assist Independent Supine to Sit Supine to Sit Independent Sit to Supine Sit to Supine Independent Scooting Scooting to Edge of Bed Independent Scooting Up and Down in Bed Independent PT-Transfer Assessment Sit to and From Stand Sit to and from Stand Independent Equipment Transfer Assistive Device None Transfer Ability Level of Assist Independent Gait Assessment Gait Gait Assistance Required: Independent Distance (Feet) 200 Assistive Devices Assistive Device Gait Belt Gait Deviations General Gait Pattern Within Normal Limits Comments Gait Comments Gait normal, balance tested and pt with ataxia with tandem gait Stair Climbing Assessment Evaluation Level of Assist On Stairs Independent Devices Stair Climbing Assistive Devices None Technique/Endurance Stair Climbing Direction Ascend and Descend Stair Climbing Technique Step Over Step Number of Steps Climbed 3 Query Text: PT-Balance Assessment Sitting Balance and Reactions Static Sitting Balance Ability Normal Dynamic Sitting Balance Ability Normal Standing Balance and Reactions Static Standing Balance Ability Normal Dynamic Standing Balance Ability Good Balance Tests Tandem Standing Able to perform B, some increased sway Comments Other Balance Tests/Deviations/Treatment FGA testing normal except : tandem gait and pt with ataxia and having to take corrective steps with this. Functional Assessments Functional Tests Functional Gait Assessment Normal score, trouble with tandem gait M5 PT-IP Objective Assessments Start: 10/10/19 09:10 Freq: Status: Active Protocol: Document 10/10/19 09:50 MB (Rec: 10/10/19 11:21 MB [id number]) Orientation Orientation/Cognition Level of Alertness Alert Orientation Name,Age,Birthday,Month,Date, Year,Day of Week,Place, Situation Language Function Ability No Deficits Noted Safety Awareness Understands Safety Issues Memory Description No Deficits Noted Gross Range of Motion Upper Extremity ROM Assessment Within Functional Limits Lower Extremity ROM Assessment Within Functional Limits Strength Upper Extremity Strength Assessment Within Functional Limits Lower Extremity Strength Assessment Within Functional Limits Coordination Assessment Assessment Pronation/Supination Test Normal Performance Foot Tapping Test Normal Performance Coordination Comments Pt with positivie test of skew with left eye drift. He reports improving left eye left visual field hemianopia. May benefit from neuro- opthalamologist consult at d/c . He does report one episode of his typical waterfall visual migraine symptom during PT. 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 Orthostatic testing is negative. He reports history of two vasovagal events. Sensation Assessment Comments Sensation Comments Pt reports L extremity tingling is gone Muscle Tone Muscle Tone WNL Yes M6 PT-IP Treatment Start: 10/10/19 09:10 Freq: Status: Active Protocol: Document 10/10/19 09:50 MB (Rec: 10/10/19 11:21 MB [id number]) Physical Therapy Treatment Other Treatments Other Treatment Performed Ex: tandem standing with head turns and then with eyes closed, alternate feet, handout given Importance of stress maintenance in setting of migraines and stroke, hydration, benefits of outpatient PT (lengthy discussion with pt and education and he is very receptive) M7 PT-IP Assessment and Plan Start: 10/10/19 09:10 Freq: Status: Active Protocol: Document 10/10/19 09:50 MB (Rec: 10/10/19 11:21 MB [id number]) PT Summary Assessment and Plan Summary Assessment Summary Pt is a pleasant 59 y/o male presenting with right occipital and cerebellar lobe infarct. His initial symptoms of left sided tingling is gone and his visual field deficit is improved and he con't with small area of visual deficit left eye. 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 His strength and coordination are normal. He denies pain. He does have some left eye drift/mild skew. His gait is normal except for tandem gait and provided HEP handout for pt. Provided extensive education in benefits of outpatient PT for balance traning, fascial work as needed, further relaxation training as appropriate. He has no further acute PT needs. D/c PT. Frequency of Treatment Frequency Of Treatment Discharge Recommendations To Nursing Amount of Assist Needed Independent Discharge Recommendations PT Discharge Recommendations Home Other Discharge Recommendations OPPT if pt agreeable Further work-up of visual field deficit, migraine Transportation Needs at Discharge Private Vehicle
--- NOTE | 2019-10-10 12:53 | DI.ECHO.S_ITS ---
[facility]---------+ [facility] +---------+ : : [address] : : : : [id number] : : : : Phone: [phone]+ Echocardiogram Report + + :Name: VINCENT ROQUE Study Date: 10/10/2019 Height: 70 in : :[facility] Weight: 156 lb : : Gender: Male BSA: 1.9 m2 : :: 1960 Age: 59 yrs BP: 131/70 mmHg: :Reason For Study: Stroke : :Ordering Physician: Yumiko : :Hospitalist Performed By: Ana Henriquez : :Referring: CARINA KLEIN L : + + Interpretation Summary 1) Normal left ventricular thickness, size, wall motion, and systolic function (EF 60-65%). 2) Normal right ventricular size and function. 3) No significant valvular abnormalities. 4) Injection of contrast with valsalva documented an interatrial shunt. 5) No prior Echo available for comparison. Procedure: A two-dimensional transthoracic echocardiogram with color flow and Doppler was performed. The study quality was technically adequate. There is no prior echocardiogram noted for this patient. A saline contrast injection was performed to assess for cardiac shunting. The patient was in normal sinus rhythm during the exam. Left Ventricle: The left ventricle is normal in size, wall thickness, and systolic function without any focal wall motion abnormalities. There is no ventricular septal defect visualized. The ejection fraction is estimated to be 60-65%. Diastolic parameters suggest probable normal left ventricular diastolic function and normal filling pressures. Right Ventricle: The right ventricle is normal in size and function. Atria: The left atrium is mildly dilated. Right atrial size is normal. Injection of contrast with valsalva documented an interatrial shunt. Mitral Valve: The mitral valve is normal in structure and function. Redundant elongated chordae are noted. There is trace mitral regurgitation. Aortic Valve: The aortic valve is normal in structure and function. There is no aortic valve stenosis. No aortic regurgitation is present. Tricuspid Valve: The tricuspid valve is normal in structure and function. There is a trace or physiologic amount of tricuspid regurgitation. Pulmonary artery pressures cannot be estimated because of the lack of a measurable TR jet velocity but the IVC suggests a CVP of around 3 mmHg. Pulmonic Valve: The pulmonic valve is not well visualized. Great Vessels: The aortic root is normal size. The ascending aorta could not be visualized. The aortic arch is normal in size. The IVC is of normal diameter and collapses greater than 50% with a sniff. This suggests a low right atrial pressure of 3 mm Hg. Pericardium/ Pleura There is no pericardial effusion. MMode/2D Measurements & Calculations LVIDd: 4.7 cm LVOT diam: 2.1 cm LVIDs: 2.6 cm Ao root diam: 3.4 cm FS: 44.1 % Ao Arch Diam (Prox Trans): 3.1 cm EPSS: 0.10 cm IVSd: 0.76 cm LVPWd: 0.89 cm LV nicholson. diameter/BSA (cm/m^2): 2.5 LV sys. diameter/BSA (cm/m^2): 1.4 LA A2 area: 19.9 cm2 RA long axis: 5.0 cm LA A4 area: 23.1 cm2 RA area: 17.9 cm2 LA length (vol): 4.9 cm RA vol: 54.1 ml LA vol: 79.5 ml RA : 28.8 ml/m2 LA vol index: 42.3 ml/m2 RVD1 (basal): 4.2 cm RVD2 (mid): 2.7 cm TAPSE: 2.7 cm Doppler Measurements & Calculations Ao V2 max: 153.1 cm/sec LVOT Max Camilo: 141.9 cm/sec Ao V2 mean: 96.8 cm/sec LV V1 max P.1 mmHg Ao max P.4 mmHg LV V1 VTI: 27.1 cm Ao mean P.4 mmHg FERN(I,D): 3.4 cm2 Ao V2 VTI: 27.9 cm FERN(V,D): 3.2 cm2 sev ratio: 0.97 FERN indexed to BSA (cm^2/m^2): 1.8 MV E max camilo: 74.2 cm/sec PA V2 max: 70.7 cm/sec MV A max camilo: 43.3 cm/sec PA V2 mean: 46.3 cm/sec MV E/A: 1.7 PA mean P.98 mmHg Med Peak E' Camilo: 14.1 cm/sec PA Accel Time: 0.07 sec E/E' med: 5.3 Lat Peak E' Camilo: 13.7 cm/sec E/E' lat: 5.4 E/e' average: 5.3 MV dec time: 0.15 sec SV(LVOT): 94.7 ml Reading Physician:02:12 PM
--- NOTE | 2019-10-10 14:20 | DI.US.S_ITS ---
PROCEDURE: US PERIPH VENOUS LOW EXTREM BI INDICATIONS: ACUTE CVA AND PFO TECHNIQUE: Real-time imaging, as well as color and pulse Doppler interrogation, were performed of the deep veins of both legs from the inguinal ligament to the popliteal fossa. COMPARISON: None. FINDINGS: Right: The common femoral, femoral and popliteal veins are normally compressible, and free of intraluminal thrombus. Color and pulse Doppler demonstrate normal phasic intravascular flow. There is normal augmentation response to distal compression maneuver. Left: The common femoral, femoral and popliteal veins are normally compressible, and free of intraluminal thrombus. Color and pulse Doppler demonstrate normal phasic intravascular flow. There is normal augmentation response to distal compression maneuver. IMPRESSION: Negative for deep venous thrombosis. Dictated by: Ricardo Weber M.D. on 10/10/2019 at 14:19 Approved by: Ricardo Weber M.D. on 10/10/2019 at 14:19
--- NOTE | 2019-10-10 14:20 | PC.NURSE ---
Patient ambulating without difficulty. Discharge instructions, medications and home care handouts reviewed with patient. He states understanding and has no further questions or concerns at this time. ECHO results up and Dr Givens reviewed and discussed with patient. Patient now waiting for doppler study as ordered prior to discharge. Continue to follow.
--- NOTE | 2019-10-10 15:30 | PC.NURSE ---
Doppler study completed and Dr. Givens states patient ok to discharge. IV removed intact. 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 Patient has no further questions or concerns at this time.
== END 2019-10-10 15:38 | disposition home or self-care (01) | DRG 66 ==
LOC: ED 11:49 → AC 13:01
PROVIDERS: Admitting Provider Internal Medicine; Emergency Provider Emergency Medicine; PCP Family Medicine; Referring Provider Emergency Medicine; Visit Provider Internal Medicine
DX: I63.541 Cerebral infarction due to unspecified occlusion or stenosis of right cerebellar artery (principal); H53.47 Heteronymous bilateral field defects; D69.6 Thrombocytopenia, unspecified; R73.03 Prediabetes
CPT/HCPCS: 36415; 70450; 70496; 70498; 70548; 70553; 80048; 80061; 81003; 83036; 83735; 84443; 85025; 85610; 85730; 93005; 93306; 93970; 96361; 96374; 97110; 97162; 97535; 99285; A9579; J1650; J1885; Q9967

== ENCOUNTER → 2019-11-15 08:22 | Outpatient (CLI) | payer OTHER, SELFPAY ==
[2019-10-09 14:18] VITALS: BMI 23.1
[2019-11-15 09:26] LABS: Add Manual Diff / Slide Review NO; Basophils Absolute Auto 0 /uL (0-100); Basophils Percent Auto 0.9 % (0-2); Eosinophils Absolute Auto 100 /uL (0-450); Eosinophils Percent Auto 1.8 % (2-4); Hematocrit 40.7 % (41-53); Hemoglobin 14.3 g/dL (13.5-17.5); Lymphocytes Absolute Auto 1300 /uL (1100-4500); Lymphocytes Percent Auto 41.6 % (25-40); Mean Corpuscular HGB Conc 35.1 % (30-36); Mean Corpuscular Hemoglobin 33.2 PG (26-34); Mean Corpuscular Volume 94.5 fL (80-100); Monocytes Absolute Auto 300 /uL (0-900); Monocytes Percent Auto 9.4 % (3-14); Neutrophils Absolute Auto 1400 /uL (1500-7000); Neutrophils Percent Auto 46.3 % (50-75); Platelet Count 119 X10^3/uL (150-400); Red Blood Cell Count 4.31 X10^6/uL (4.5-5.9); Red Cell Distribution Width 12.9 % (11.6-14.8); White Blood Cell Count 3.1 X10^3/uL (4.5-11.0)
[2019-11-15 09:49] LABS: Alanine Aminotransferase 44 IU/L (<50); Albumin 4.5 g/dL (3.5-5.0); Albumin Globulin Ratio 1.6 (1.0-2.8); Alkaline Phosphatase 60 U/L (38-126); Aspartate Aminotransferase 46 IU/L (17-59); BUN Creatinine Ratio 22.3 (6-22); Bilirubin Total 0.9 mg/dL (0.2-1.3); Blood Urea Nitrogen 21 mg/dL (9-20); Calcium 9.2 mg/dL (8.4-10.2); Carbon Dioxide 28 mmol/L (22-32); Chloride 105 mmol/L (98-107); Cholesterol 120 mg/dL (140-199); Estimated Glomerular Filt Rate > 60.0 mL/min (>60); Globulin 2.8 g/dL (1.7-4.1); Glucose 97 mg/dL (70-100); HDL Cholesterol 46 mg/dL (40-60); HEMOLYSIS < 15 (0-50); LDL Cholesterol Calculated 60 mg/dL (<100); Potassium 4.4 mmol/L (3.4-5.1); Sodium 139 mmol/L (137-145); Total Protein 7.3 g/dL (6.3-8.2); Triglycerides 68 mg/dL (35-150)
[2019-11-15 10:17] LABS: TSH w/ Reflex to FT4 1.88 uIU/mL (0.47-4.68)
[2019-11-16 08:19] LABS: Insulin Level Total 3.2 uIU/mL (2.6-24.9)
== END ==
PROVIDERS: PCP Family Medicine; Referring Provider Family Medicine; Visit Provider Family Medicine
DX: E78.5 Hyperlipidemia, unspecified (principal); I63.9 Cerebral infarction, unspecified; R73.01 Impaired fasting glucose
CPT/HCPCS: 36415; 80053; 80061; 83525; 84443; 85025

== ENCOUNTER → 2020-03-30 08:36 | Outpatient (CLI) | payer OTHER, SELFPAY ==
[2019-10-09 14:18] VITALS: BMI 23.1
[2020-03-30 09:08] LABS: Add Manual Diff / Slide Review NO; Basophils Absolute Auto 0 /uL (0-100); Basophils Percent Auto 0.9 % (0-2); Eosinophils Absolute Auto 100 /uL (0-450); Eosinophils Percent Auto 2.8 % (2-4); Hematocrit 40.2 % (41-53); Hemoglobin 13.6 g/dL (13.5-17.5); Lymphocytes Absolute Auto 1300 /uL (1100-4500); Lymphocytes Percent Auto 43.9 % (25-40); Mean Corpuscular HGB Conc 33.8 % (30-36); Mean Corpuscular Hemoglobin 32.3 PG (26-34); Mean Corpuscular Volume 95.5 fL (80-100); Monocytes Absolute Auto 300 /uL (0-900); Neutrophils Absolute Auto 1200 /uL (1500-7000); Neutrophils Percent Auto 41.4 % (50-75); Platelet Count 116 X10^3/uL (150-400); Red Blood Cell Count 4.21 X10^6/uL (4.5-5.9); Red Cell Distribution Width 12.5 % (11.6-14.8)
[2020-03-30 09:17] LABS: Alanine Aminotransferase 33 IU/L (<50); Albumin Globulin Ratio 1.4 (1.0-2.8); Alkaline Phosphatase 65 U/L (38-126); Aspartate Aminotransferase 34 IU/L (17-59); BUN Creatinine Ratio 20.2 (6-22); Bilirubin Total 1.1 mg/dL (0.2-1.3); Blood Urea Nitrogen 19 mg/dL (9-20); Calcium 8.6 mg/dL (8.4-10.2); Carbon Dioxide 30 mmol/L (22-32); Chloride 104 mmol/L (98-107); Cholesterol 113 mg/dL (140-199); Estimated Glomerular Filt Rate > 60.0 mL/min (>60); Globulin 2.9 g/dL (1.7-4.1); Glucose 98 mg/dL (70-100); HDL Cholesterol 53 mg/dL (40-60); HEMOLYSIS < 15 (0-50); LDL Cholesterol Calculated 45 mg/dL (<100); Potassium 4.4 mmol/L (3.4-5.1); Sodium 137 mmol/L (137-145); Total Protein 6.9 g/dL (6.3-8.2); Triglycerides 74 mg/dL (35-150)
[2020-03-30 10:06] LABS: TSH w/ Reflex to FT4 1.51 uIU/mL (0.47-4.68)
[2020-03-31 11:10] LABS: Insulin Level Total 2.2 uIU/mL (2.6-24.9)
== END ==
PROVIDERS: PCP Family Medicine; Referring Provider Family Medicine; Visit Provider Family Medicine
DX: Z00.00 Encounter for general adult medical examination without abnormal findings (principal); E78.5 Hyperlipidemia, unspecified; R73.01 Impaired fasting glucose
CPT/HCPCS: 36415; 80053; 80061; 83525; 84443; 85025

== ENCOUNTER → 2021-06-26 08:49 | Outpatient (CLI) | payer OTHER, SELFPAY ==
[2019-10-09 14:18] VITALS: BMI 23.1
[2021-06-26 09:46] LABS: Alanine Aminotransferase 27 IU/L (<50); Albumin 4.1 g/dL (3.5-5.0); Albumin Globulin Ratio 1.6 (1.0-2.8); Alkaline Phosphatase 52 U/L (38-126); Aspartate Aminotransferase 34 IU/L (17-59); BUN Creatinine Ratio 17.7 (6-22); Bilirubin Total 1.3 mg/dL (0.2-1.3); Blood Urea Nitrogen 17 mg/dL (9-20); Calcium 9.1 mg/dL (8.4-10.2); Carbon Dioxide 32 mmol/L (22-32); Chloride 103 mmol/L (98-107); Cholesterol 132 mg/dL (140-199); Estimated Glomerular Filt Rate > 60.0 mL/min (>60); Globulin 2.6 g/dL (1.7-4.1); Glucose 92 mg/dL (70-100); HDL Cholesterol 58 mg/dL (40-60); HEMOLYSIS < 15 (0-50); LDL Cholesterol Calculated 58 mg/dL (<100); Potassium 4.2 mmol/L (3.4-5.1); Sodium 136 mmol/L (137-145); Total Protein 6.7 g/dL (6.3-8.2); Triglycerides 80 mg/dL (35-150)
== END ==
PROVIDERS: PCP Family Medicine; Referring Provider Family Medicine; Visit Provider Family Medicine
DX: E78.5 Hyperlipidemia, unspecified (principal)
CPT/HCPCS: 36415; 80053; 80061

== ENCOUNTER → 2022-04-04 10:07 | Outpatient (CLI) | payer OTHER, SELFPAY ==
[2019-10-09 14:18] VITALS: BMI 23.1
--- NOTE | 2022-04-04 10:09 | DI.CT.S_ITS ---
PROCEDURE: CT CHEST ABDOMEN W CON INDICATIONS: EPIGASTRIC PAIN / FULLNESS S/P RIANNA TECHNIQUE: After the administration of oral contrast and intravenous contrast, 5 mm thick sections acquired from the lung apices to the iliac crests. 5 mm coronal and sagittal reformats were performed, with additional 7 mm coronal MIP reformats through the lungs. For radiation dose reduction, the following was used: automated exposure control, adjustment of mA and/or kV according to patient size. COMPARISON: [facility], CT, CT ANGIO HEAD AND NECK, 10/09/2019, 9:46. FINDINGS: Image quality: Excellent. CHEST: Lungs and pleura: A 6 mm pulmonary nodule is present within the right lower lobe (series 6/image 185). 3 mm pulmonary nodule is present at the right apex and is unchanged from the study dated October 09, 2019. No acute airspace opacities. No pleural effusion or pneumothorax. Mediastinum: Heart size is normal. No pericardial effusion. No mediastinal or hilar adenopathy by size criteria. Thoracic aorta and central pulmonary arteries are normal in size. Esophagus is normal in caliber. No hiatal hernia. Chest wall: No axillary or supraclavicular adenopathy by size criteria. Thyroid gland is unremarkable . ABDOMEN: Solid organs: Liver is normal in size and enhancement. Gallbladder is unremarkable . Biliary system is non dilated. Pancreas enhances normally. Spleen is normal in size and enhancement. No adrenal nodules. Kidneys are normal in size and enhancement, without hydronephrosis. Peritoneum and bowel: Bowel loops demonstrate normal wall thickness and caliber. The appendix is thin walled and gas-filled where visualized. No free fluid or air. Nodes and vessels: No retroperitoneal or mesenteric adenopathy by size criteria. Aorta and inferior vena cava are normal in caliber. Bones: No suspicious bony lesions. No vertebral body compression fractures. Miscellaneous: No ventral hernias. IMPRESSION: 1. No acute abdominal findings. No discrete findings to explain epigastric pain. 2. 6 mm right lower lobe pulmonary nodule. Follow-up in 6-12 months recommended. Please see guidelines below. Fleischner Society criteria for SOLID lung nodule followup. Nodule size (mm)Low-risk patientHigh-risk patient<6 (single or multiple)No routine followup.Optional CT at 12 months. 6-8 (single or multiple)CT at 6-12 months, then optional CT at 18-24 mo.CT at 6-12 months, then CT at 18-24 months. >8 (single)CT at 3 months, PET-CT, or biopsy. Same as for low-risk pts. >8 (multiple)CT at 3-6 months, then optional CT at 18-24 mo.CT at 3-6 months, then CT at 18-24 months. Fleischner Society criteria for SUB-SOLID lung nodule followup. Solitary pure ground-glass nodules<6 mm (ground glass or part solid)No followup needed. 6 mm or larger (ground glass)CT at 6-12 months to confirm persistence, then CT every 2 years until 5 years.6 mm or larger (part solid)CT at 3-6 months to confirm persistence, then annual CT until 5 years if unchanged and solid component remains <6 mm. Multiple sub-solid nodules<6 mmCT at 3-6 months, then CT consider at 2 & 4 years for high risk patients. [address] at 3-6 months. Subsequent management based on most suspicious lesions. Recommendations do not apply to lung cancer screening, patients with immunosuppression, or patients with known primary cancer. Dictated by: Melanie Dozier M.D. on 04/04/2022 at 14:41 Approved by: Melanie Dozeir M.D. on 04/04/2022 at 15:02
== END ==
PROVIDERS: PCP Family Medicine; Referring Provider Internal Medicine Gastroenterology; Visit Provider Internal Medicine Gastroenterology
DX: R10.13 Epigastric pain (principal); R91.1 Solitary pulmonary nodule
CPT/HCPCS: 71260; 74160; Q9967

== ENCOUNTER → 2022-10-29 14:15 | Outpatient (CLI) | payer OTHER, SELFPAY ==
[2019-10-09 14:18] VITALS: BMI 23.1
--- NOTE | 2022-10-29 14:24 | DI.CT.S_ITS ---
PROCEDURE: CT CHEST WO CON INDICATIONS: f/u on Lung Nodule. See Abd CT TECHNIQUE: Noncontrast 5 mm thick sections acquired from the pulmonary apices to the posterior costophrenic angles. 1 mm lung window, 5 mm thick coronal and sagittal and 7 mm axial MIP reformats were then acquired. For radiation dose reduction, the following was used: automated exposure control, adjustment of mA and/or kV according to patient size. COMPARISON: [facility], CT, CT CHEST ABDOMEN W CON, 04/04/2022, 11:23. FINDINGS: Image quality: Excellent. Lungs and pleura: Stable 3 mm nodule in the right middle lobe series 6, image 110. Stable 6.6 mm nodule in the right lower lobe series 6, image 99. Stable 3 mm nodule in the left lower lobe series 6, image 126. No acute air space opacities. No pleural effusions or pneumothorax. Central and peripheral airways are patent and normal in caliber. Mediastinum: Heart size is normal. The coronary arteries have atherosclerotic calcifications. No pericardial effusion. Closure device between the right and left atrium. No mediastinal adenopathy by size criteria. Thoracic aorta and central pulmonary arteries are normal in size. Esophagus is normal in caliber. No hiatal hernia. Bones and chest wall: No suspicious bony lesions. No vertebral body compression fractures. No axillary or supraclavicular adenopathy by size criteria. Thyroid gland is normal. Abdomen: Limited visualization of the upper abdomen shows no acute abnormality. IMPRESSION: 1. Stable pulmonary nodules as above. 2. No acute abnormality of the chest. Dictated by: Devin Garcia M.D. on 10/29/2022 at 15:29 Approved by: Devin Garcia M.D. on 10/29/2022 at 15:38
== END ==
PROVIDERS: PCP Family Medicine; Referring Provider Family Medicine; Visit Provider Family Medicine
DX: R91.8 Other nonspecific abnormal finding of lung field (principal); I25.10 Atherosclerotic heart disease of native coronary artery without angina pectoris
CPT/HCPCS: 71250

== ENCOUNTER 2023-02-25 08:21 | Day surgery (SDC) | payer OTHER, SELFPAY ==
[2019-10-09 14:18] VITALS: BMI 23.1
[2023-02-25] VITALS (9 sets, daily range): BP systolic 94–133; BP diastolic 59–80; PULSE 50–67; RESP 12–18; TEMP 36.4–37.2; O2SAT 97–100; BMI 22.7
[2023-02-25] MEDS: LACTATED RINGERS 1,000 ML 42 ML IV (08:43)
--- NOTE | 2023-02-25 09:06 | P.HP_ITS ---
History of Present Illness History of Present Illness Date Patient Seen: 02/25/23 Time Patient Seen: 09:06 Chief complaint: IDC Narrative: 62-year-old man here for routine screening colonoscopy. Last colonoscopy 10 years ago normal. History of intestinal malignancy. No abdominal complaints today including abdominal pain blood per rectum unintentional weight loss nausea. [facility] Medical History (Updated 05/14/22 @ 08:35 by John Young DO) Actinic keratoses (1999) Anxiety (1998) Chicken pox Fractures (2006) Herpes HSV-2 (herpes simplex virus 2) infection Impaired fasting blood sugar Lung nodule PFO (patent foramen ovale) PTSD (post-traumatic stress disorder) (2011) Shingles (~1974) Tinnitus Surgical History Anesthesia History of amputation of extremity (11/29/85) History of biopsy (08/2014) History of open reduction and internal fixation (ORIF) procedure (07/14/07) Family History Father Heart disease Hypertension High cholesterol Mitral valve disease Aortic valve disease Carotid artery disease Dementia Smoker Mother Age: 84 Hypertension High cholesterol Daily consumption of alcohol Adopted Grandfather No problems noted. Grandmother No problems noted. Sister No problems noted. Family/Other No problems noted. Social History household members: spouse and children Smoking Status: Never smoker alcohol intake: current Meds Home Medications and Allergies Home Medications Medication Instructions Recorded Confirmed Type aspirin 81 mg tablet,delayed 81 mg PO DAILY 04/03/20 02/25/23 History release atorvastatin 40 mg tablet 40 mg PO BEDTIME 30 days #90 tabs 05/14/22 02/25/23 Rx valacyclovir 1 gram tablet 1,000 mg PO Q8H #21 tabs 05/14/22 02/25/23 Rx (Valtrex) Allergies Allergy/AdvReac Type Severity Reaction Status Date / Time No Known Drug Allergies Allergy Verified 02/25/23 08:33 Exam Vital Signs (past 8 hours): - 02/25/23 08:35 Temperature 97.6 F Pulse Rate 67 Respiratory Rate 16 Blood Pressure 133/80 Pulse Oximetry 99 Oxygen Delivery Method Room Air Oxygen Delivery Method Room Air Narrative Exam Narrative: General adult man oriented no acute distress Abdomen soft nontender nondistended Assessment & Plan Assessment & Plan narrative: The patient requires colorectal screening and colonoscopy is recommended. Technical details were discussed. Risks, benefits, alternatives explained. R isks including but not limited to myocardial infarction, aspiration, bleeding, pain, missed lesion, incomplete examination, need for further radiographic studies, colonic perforation, and need for major abdominal surgery were discussed. All questions were answered to their satisfaction, and they are in agreement with this plan.
--- NOTE | 2023-02-25 09:07 | PM.OP.COLON ---
Operative Date/Time/Diagnoses Date of procedure: 02/25/23 Time of procedure: 09:07 Pre-op diagnosis: Colorectal screening Post-op diagnosis: same Procedure & Clinicians Study performed: Colonoscopy Same procedure as scheduled: Yes Indications: Colorectal screening Surgeon: Preet Garcia Procedure Notes Procedure in detail: The history and physical was performed/updated and the patient is ASA class is 2. The procedure was discussed in detail with the patient. Potential risks complications including infection, bleeding, missed diagnosis, perforation, need for surgery, and were explained. Their questions were answered and informed consent was obtained. Patient was brought to the procedure room and placed standard monitoring equipment. The patient's vital signs were monitored continuously throughout the entire procedure. Prior to starting time-out was performed. The patient was placed in the left lateral recumbent position. Procedural sedation was administered by anesthesia. Examination began with a thorough inspection of the perianal area there was no evidence of fissures, fistulae, external hemorrhoids or cutaneous malignancy. The colonoscopy scope was then placed into the anal canal and was advanced to the cecum, which was identified by the ileocecal valve, the appendiceal orifice and the confluence of the taenia. The scope was then slowly withdrawn examining colon thoroughly in all directions, irrigating it of any residual stool. Normal healthy colon. No masses polyps or inflammation. The patient tolerated the procedure well. They will be discharged once criteria are met. The prep was of good/excellent quality. The withdrawl time was 6 minutes. Specimen(s): none sent Impression: Normal colonoscopy Post-procedure Recommendations: Colonoscopy in 10 years Disposition: same day surgery
== END 2023-02-25 10:11 | disposition home or self-care (01) ==
PROVIDERS: PCP Family Medicine; Referring Provider Surgery; Visit Provider Surgery
PROC: 0DJD8ZZ Inspection of Lower Intestinal Tract, Via Natural or Artificial Opening Endoscopic (ICD-10-PCS; CPT 45378; principal; 2023-02-25 09:15)
DX: Z12.11 Encounter for screening for malignant neoplasm of colon (principal)
CPT/HCPCS: 45378; J2704

== ENCOUNTER → 2023-05-21 09:27 | Outpatient (CLI) | payer OTHER, SELFPAY ==
[2019-10-09 14:18] VITALS: BMI 23.1
--- NOTE | 2023-05-21 09:28 | DI.CT.S_ITS ---
PROCEDURE: CT CHEST WO CON INDICATIONS: f/u lung nodule TECHNIQUE: Noncontrast 5 mm thick sections acquired from the pulmonary apices to the posterior costophrenic angles. 1 mm lung window, 5 mm thick coronal and sagittal and 7 mm axial MIP reformats were then acquired. For radiation dose reduction, the following was used: automated exposure control, adjustment of mA and/or kV according to patient size. COMPARISON: [facility], CT, CT CHEST WO CON, 10/29/2022, 14:21. FINDINGS: Image quality: Excellent. Lungs and pleura: 3 mm nodule in the right middle lobe series 3, image 210 is unchanged. 6 mm nodule in the right lower lobe series 3, image 183 is unchanged. 3 mm nodule in the left lower lobe series 3, image 246 is unchanged. No acute air space opacities. No pleural effusions or pneumothorax. Central and peripheral airways are patent and normal in caliber. Mediastinum: An atrial closure device is seen. Heart size is normal. No pericardial effusion. No mediastinal adenopathy by size criteria. Thoracic aorta and central pulmonary arteries are normal in size. Esophagus is normal in caliber. No hiatal hernia. Bones and chest wall: No suspicious bony lesions. No vertebral body compression fractures. No axillary or supraclavicular adenopathy by size criteria. No thyroid nodules which require sonographic follow up, per consensus guidelines. Abdomen: Visualized upper abdominal solid organs and bowel loops appear normal in the absence of contrast. IMPRESSION: 1. Stable pulmonary nodules as above. 2. No acute abnormality of the chest. Dictated by: Devin aGrcia M.D. on 05/21/2023 at 10:33 Approved by: Devin Garcia M.D. on 05/21/2023 at 10:39
== END ==
PROVIDERS: PCP Family Medicine; Referring Provider Family Medicine; Visit Provider Family Medicine
DX: R91.8 Other nonspecific abnormal finding of lung field (principal)
CPT/HCPCS: 71250

== ENCOUNTER → 2023-07-22 07:54 | Outpatient (CLI) | payer OTHER, SELFPAY ==
[2019-10-09 14:18] VITALS: BMI 23.1
[2023-07-22 09:51] LABS: Hematocrit 41.7 % (41-53); Hemoglobin 14.2 g/dL (13.5-17.5); Mean Corpuscular HGB Conc 33.9 % (30-36); Mean Corpuscular Hemoglobin 32.7 PG (26-34); Mean Corpuscular Volume 96.2 fL (80-100); Platelet Count 125 X10^3/uL (150-400); Red Blood Cell Count 4.34 X10^6/uL (4.5-5.9); Red Cell Distribution Width 12.9 % (11.6-14.8); White Blood Cell Count 3.3 X10^3/uL (4.5-11.0)
[2023-07-22 10:08] LABS: Alanine Aminotransferase 34 IU/L (<50); Albumin 4.2 g/dL (3.5-5.0); Albumin Globulin Ratio 1.5 (1.0-2.8); Alkaline Phosphatase 56 U/L (38-126); Aspartate Aminotransferase 42 IU/L (17-59); BUN Creatinine Ratio 18.9 (6-22); Blood Urea Nitrogen 17 mg/dL (9-20); Calcium 9.2 mg/dL (8.4-10.2); Carbon Dioxide 26 mmol/L (22-32); Chloride 101 mmol/L (98-107); Cholesterol 132 mg/dL (140-199); Estimated Glomerular Filt Rate > 60 mL/min (>60); Globulin 2.8 g/dL (1.7-4.1); Glucose 90 mg/dL (80-110); HDL Cholesterol 58 mg/dL (40-60); HEMOLYSIS 22 (0-50); LDL Cholesterol Calculated 60 mg/dL (<100); Potassium 4.1 mmol/L (3.4-5.1); Sodium 136 mmol/L (137-145); Triglycerides 71 mg/dL (35-150)
[2023-07-22 10:24] LABS: Neutrophils Absolute Manual 1386 /uL (3000-5900); RBC Morphology Normal Morphology; Total Cells Counted 100
[2023-07-22 10:36] LABS: Prostate Specific Antigen 0.907 ng/mL (0.10-4.00)
[2023-07-22 10:55] LABS: HIV 1 & 2 Ab/Ag 4th Gen Combo NEGATIVE (NEGATIVE); Hep C Virus Ab w/Reflex Quant NEGATIVE s/c (NEGATIVE)
== END ==
PROVIDERS: PCP Family Medicine; Referring Provider Family Medicine; Visit Provider Family Medicine
DX: E78.5 Hyperlipidemia, unspecified (principal); D61.818 Other pancytopenia; Z11.4 Encounter for screening for human immunodeficiency virus [HIV]; Z12.5 Encounter for screening for malignant neoplasm of prostate; Z11.59 Encounter for screening for other viral diseases
CPT/HCPCS: 36415; 80053; 80061; 84153; 85025; 86803; 87389

== ENCOUNTER → 2024-04-13 08:51 | Outpatient (CLI) | payer OTHER, SELFPAY ==
[2019-10-09 14:18] VITALS: BMI 23.1
[2024-04-13 09:50] LABS: Influenza A - CEPHEID Flu A NEGATIVE (NEGATIVE); Influenza B - CEPHEID Flu B NEGATIVE (NEGATIVE); Respiratory Syncytial Virus Negative (Negative)
[2024-04-13 09:51] LABS: COVID-19 CEPHEID 4-PLEX PCR Negative (Negative)
== END ==
PROVIDERS: PCP Family Medicine; Visit Provider Physician Assistant Surgical
DX: R05.1 Acute cough (principal)
CPT/HCPCS: 0241U

== ENCOUNTER → 2024-04-19 08:06 | Outpatient (CLI) | payer OTHER, SELFPAY ==
[2019-10-09 14:18] VITALS: BMI 23.1
--- NOTE | 2024-04-19 08:07 | DI.RAD.S_ITS ---
PROCEDURE: XR CHEST 2V INDICATIONS: susp R side PNA, 2 wk cough, sweats at night TECHNIQUE: 2 views of the chest were acquired. COMPARISON: None. FINDINGS: Surgical changes and devices: None. Lungs and pleura: Right middle lobe consolidation and mild atelectasis, right middle lobe.. No pleural effusions or pneumothorax. Mediastinum: Mediastinal contours are normal. Heart size is normal. Bones and chest wall: No suspicious bony abnormalities. Soft tissues appear unremarkable. IMPRESSION: Right middle lobe pneumonia with mild associated volume loss. Comment: Progress films are recommended until clear. Dictated by: Aleks Carrasco M.D. on 04/19/2024 at 8:18 Approved by: Aleks Carrasco M.D. on 04/19/2024 at 8:24
== END ==
PROVIDERS: PCP Family Medicine; Referring Provider Student in an Organized Health Care Education/Training Program; Visit Provider Student in an Organized Health Care Education/Training Program
DX: J18.9 Pneumonia, unspecified organism (principal); R05.9 Cough, unspecified; R61 Generalized hyperhidrosis
CPT/HCPCS: 71046

== ENCOUNTER → 2024-04-27 08:02 | Outpatient (CLI) | payer OTHER, SELFPAY ==
[2019-10-09 14:18] VITALS: BMI 23.1
--- NOTE | 2024-04-27 08:03 | DI.RAD.S_ITS ---
PROCEDURE: XR CHEST 2V INDICATIONS: F/U CXR recheck PNA TECHNIQUE: 2 views of the chest were acquired. COMPARISON: [facility], CR, XR CHEST 2V, 04/19/2024, 8:05. FINDINGS: Surgical changes and devices: A prosthetic valve is seen. Lungs and pleura: Persistent opacity in right middle lobe with adjacent atelectasis unchanged slightly decreased in size compared to previous study. No new airspace opacities. No pleural effusions or pneumothorax. Mediastinum: Mediastinal contours are normal. Heart size is normal. Bones and chest wall: No suspicious bony abnormalities. Soft tissues appear unremarkable. IMPRESSION: Interval slightly decrease in size of patient's known right middle lobe infiltrate. No pleural effusion or pneumothorax. No new area of abnormal airspace opacities. Dictated by: Yoni Bush M.D. on 04/27/2024 at 8:12 Approved by: Yoni Bush M.D. on 04/27/2024 at 8:14
== END ==
PROVIDERS: PCP Family Medicine; Referring Provider Family Medicine; Visit Provider Family Medicine
DX: J18.9 Pneumonia, unspecified organism (principal)
CPT/HCPCS: 71046

== ENCOUNTER → 2024-07-14 09:04 | Outpatient (CLI) | payer OTHER, SELFPAY ==
[2019-10-09 14:18] VITALS: BMI 23.1
--- NOTE | 2024-07-14 09:05 | DI.RAD.S_ITS ---
PROCEDURE: XR CHEST 2V INDICATIONS: PNA f/iu TECHNIQUE: 2 views of the chest were acquired. COMPARISON: [facility], CR, XR CHEST 2V, 04/27/2024, 8:00. [facility], CR, XR CHEST 2V, 04/19/2024, 8:05. FINDINGS: Surgical changes and devices: ASD closure device. Lungs and pleura: Lungs are clear. No pleural effusions or pneumothorax. Mediastinum: Mediastinal contours are normal. Heart size is normal. Bones and chest wall: No suspicious bony abnormalities. Soft tissues appear unremarkable. IMPRESSION: No acute cardiopulmonary abnormality is seen. Dictated by: Yanick Klein M.D. on 07/14/2024 at 11:56 Approved by: Yanick Klein M.D. on 07/14/2024 at 11:57
== END ==
LOC: RAD 09:04
PROVIDERS: PCP Family Medicine; Referring Provider Family Medicine; Visit Provider Family Medicine
DX: J18.9 Pneumonia, unspecified organism (principal)
CPT/HCPCS: 71046

== ENCOUNTER → 2025-04-12 15:26 | Outpatient (CLI) | payer OTHER, SELFPAY ==
[2019-10-09 14:18] VITALS: BMI 23.1
[2025-04-12 17:06] LABS: Hematocrit 41.3 % (41-53); Hemoglobin 14.0 g/dL (13.5-17.5); Mean Corpuscular HGB Conc 33.9 % (30-36); Mean Corpuscular Hemoglobin 32.5 PG (26-34); Mean Corpuscular Volume 95.9 fL (80-100); Platelet Count 126 X10^3/uL (150-400)
[2025-04-12 17:23] LABS: Alanine Aminotransferase 33 IU/L (<50); Albumin 4.3 g/dL (3.5-5.0); Albumin Globulin Ratio 1.7 (1.0-2.8); Alkaline Phosphatase 63 U/L (38-126); Blood Urea Nitrogen 16 mg/dL (9-20); Calcium 8.9 mg/dL (8.4-10.2); Carbon Dioxide 28 mmol/L (22-32); Chloride 103 mmol/L (98-107); Cholesterol 117 mg/dL (140-199); Estimated Glomerular Filt Rate > 60 mL/min (>60); Globulin 2.5 g/dL (1.7-4.1); Glucose 92 mg/dL (70-99); HDL Cholesterol 55 mg/dL (40-60); HEMOLYSIS < 15 (0-50); Potassium 4.2 mmol/L (3.4-5.1); Sodium 138 mmol/L (137-145); Total Protein 6.8 g/dL (6.3-8.2); Triglycerides 157 mg/dL (35-150)
== END ==
PROVIDERS: PCP Family Medicine; Referring Provider Family Medicine; Visit Provider Family Medicine
DX: Z12.5 Encounter for screening for malignant neoplasm of prostate (principal); I63.89 Other cerebral infarction; D61.818 Other pancytopenia; E78.5 Hyperlipidemia, unspecified
CPT/HCPCS: 36415; 80053; 80061; 85027; G0103